=== PATIENT | female | born 1950 | race Caucasian/White ===

== ENCOUNTER 2018-02-12 14:53 | Outpatient (RCR) | payer MEDICARE ==
[~2018-02-12 14:53] MED LIST: ACTONEL35 MG PO; ACTONEL5 MG OR; BENZTROPINE MESY2 MG PO; BENZTROPINE0.5 MG PO; BENZTROPINE1 MG PO; CIPRO500 MG OR; CIPRO500 MG PO; DIVALPROEX SOD250 M2 PO; DIVALPROEX SOD250 MG PO; EFFEXOR XR150 MG OR; EFFEXOR XR75 MG PO; FIORICET PO; FLUARIX QUADRIV1 IN1 IM; GABAPENTIN300 MG PO; GEODON40 MG PO; GEODON80 MG PO; HYDROCO/APAP1 T11 PO; IBUPROFEN600 MG PO; INVEGA SUST156 MG/ML IM; KEFLEX500 MG PO; KETOROLAC60 MG/2 ML IJ; LEVOTHYROXIN200 MCG PO; LEVOTHYROXIN50 MCG PO; LIORESAL10 MG/TAB PO; LORTAB5 PO; LUNESTA3 MG OR; LUNESTA3 MG PO; MIRALAX3350 N1 PO; NAPROSYN500 MG PO; PERCOCET 5/325M1 TAB OR; ROBITUSSIN AC10 ML PO; SYNTHROID175 MCG OR; TOPIRAGEN200 MG OR; TOPIRAMATE100 MG PO; VISTARIL 50MG C50 M1 PO; ZOSTAVAX IM
== END 2018-02-12 16:00 | disposition home or self-care (01) ==
LOC: PT 14:53
PROVIDERS: ATTEND Physician Assistant
DX: R26.81 Unsteadiness on feet (principal)

== ENCOUNTER → 2018-07-17 | Outpatient (REF) | payer MEDICARE ==
[2018-07-17 09:30] LABS: HEMATOCRIT 35.5 % (37.0-47.0); HEMOGLOBIN 11.8 g/dl (12.0-16.0); IMMATURE GRANULOCYTES 0.4 % (0.0-5.0); MEAN CELL VOLUME 100.3 fL CALC (80.0-100.0); MEAN CORPUSCULAR HGB 33.3 pG CALC (26.0-32.0); MEAN CORPUSCULAR HGB CONC 33.2 g/L CALC (32.0-36.0); NEUT# 2.64 thou/uL (2.00-7.15); RED BLOOD COUNT 3.54 mill/uL (4.20-5.60); RED CELL DISTRI WIDTH 12.8 % (11.5-15.5)
[2018-07-17 09:54] LABS: ALBUMIN 4.2 g/dL (3.2-5.0); BILIRUBIN, TOTAL 0.5 mg/dL (0.0-1.4); CHOLESTEROL HDL RATIO 3.6 (<4.4 (CALC)); CREATININE 1.6 mg/dL (0.5-1.0); POTASSIUM 4.3 mmol/l (3.5-5.1); TOTAL PROTEIN 7.1 g/dL (6.3-8.2)
[2018-07-17 10:47] LABS: TSH, 3RD GENERATION 1.15 uIU/mL (0.47 - 4.68)
== END | disposition home or self-care (01) ==
LOC: LAB 08:43
PROVIDERS: ATTEND Physician Assistant
DX: E78.5 Hyperlipidemia, unspecified (principal); E03.9 Hypothyroidism, unspecified; I10 Essential (primary) hypertension; E66.01 Morbid (severe) obesity due to excess calories; R52 Pain, unspecified; R53.83 Other fatigue; R73.01 Impaired fasting glucose; M15.0 Primary generalized (osteo)arthritis; R60.9 Edema, unspecified; Z68.41 Body mass index [BMI] 40.0-44.9, adult

== ENCOUNTER → 2018-07-24 | Outpatient (REF) | payer MEDICARE | END | disposition home or self-care (01) | LOC: LAB 10:24 | PROVIDERS: ATTEND Internal Medicine Nephrology | DX: N39.0 Urinary tract infection, site not specified (principal) ==

== ENCOUNTER 2022-01-02 11:19 | Emergency (ER) | payer MEDICARE, MEDICAID ==
[~2022-01-02] VITALS: Ht 162.6 cm; Wt 74.0 kg
[2022-01-02] VITALS (10 sets, daily range): BP systolic 111–135; BP diastolic 55–74
[2022-01-02 12:31] LABS: HEMATOCRIT 37.2 % (37.0-47.0); HEMOGLOBIN 12.7 g/dl (12.0-16.0); MEAN CELL VOLUME 107.2 fL CALC (80.0-100.0); MEAN CORPUSCULAR HGB 36.6 pG CALC (26.0-32.0); MEAN CORPUSCULAR HGB CONC 34.1 g/dL CAL (32.0-36.0); NEUT# 2.08 thou/uL (2.00-7.15); RED BLOOD COUNT 3.47 mill/uL (4.20-5.60); RED CELL DISTRI WIDTH 13.3 % (11.5-15.5)
[2022-01-02 12:41] LABS: ALBUMIN 3.9 g/dL (3.2-5.0); ALKALINE PHOSPHATASE 69 u/l (38-126); ANION GAP 12 (6-22 (CALC)); BILIRUBIN, TOTAL 0.5 mg/dL (0.0-1.4); BUN 10 mg/dL (8-23); BUN/CREATININE RATIO 15 (12-20 (CALC)); CARBON DIOXIDE 22 mmol/l (22-30); CHLORIDE 113 mmol/l (95-108); CREATININE 0.7 mg/dL (0.5-1.0); GFR FOR AFR.AMER. > 60 ML/MIN (>=60 (CALC)); GFR OTHER RACES > 60 ML/MIN (>=60 (CALC)); LIPASE 72 u/l (23-300); POTASSIUM 3.9 mmol/l (3.5-5.1); SGOT/AST 18 u/l (9-36); SODIUM 142 mmol/l (137-146); TOTAL PROTEIN 7.3 g/dL (6.3-8.2)
[2022-01-02 14:18] LABS: URINE BILIRUBIN - DIPSTICK NEGATIVE (NEGATIVE); URINE BLOOD DIPSTICK MODERATE (NEGATIVE); URINE COLOR YELLOW; URINE GLUCOSE - DIPSTICK NEGATIVE (NEGATIVE); URINE KETONE NEGATIVE (NEGATIVE); URINE LEUK ESTERASE NEGATIVE (NEGATIVE); URINE PH 7.5 (4.5-8.0); URINE PROTEIN - DIPSTICK NEGATIVE (NEG-TRACE); URINE UROBILINOGEN - DIPSTICK 0.2 E.U./dL (0.2)
[2022-01-02 14:25] LABS: URINE NITRITE - DIPSTICK NEGATIVE (Negative)
[2022-01-02 14:28] LABS: URINE SQUAMOUS EPITHELIAL CELL MANY EPI/hpf (0-FEW)
[2022-01-02] MEDS ORDERED: CITRATE OF MEGNESIA PO (15:36)
[2022-01-02] MEDS ORDERED: MIRALAX17 GM PO (16:06)
[2022-01-02] MEDS ORDERED: LEVSIN0.125 M1 PO (16:06)
== END 2022-01-02 16:25 | disposition home or self-care (01) ==
LOC: ED 11:19
PROVIDERS: Family Medicine
DX: R10.32 Left lower quadrant pain (principal); G25.0 Essential tremor
CPT/HCPCS: Q9967